=== PATIENT | female | born 1950 | race Hispanic/Latino ===

== ENCOUNTER 2018-05-22 15:52 | Outpatient (CLI) | payer MEDICARE, MEDICAID ==
[2018-05-22 16:56] LABS: #Eosinphils 0.2 thou/uL (0.0-0.7); #Lymphocytes 2.4 thou/uL (1.20-3.40); #Monocytes 0.6 thou/uL (0.11-0.59); #Neutrophils 6.2 thou/uL (1.40-6.50); %Basophils 0.5 % (0.0-1.0); %Eosinophils 2.4 % (0.0-10.0); %Lymphocytes 25.6 % (21.0-51.0); %Monocytes 6.2 % (0.0-10.0); %Neutrophils 65.4 % (42.0-75.0); Hemoglobin 13.4 g/dL (12.0-16.0); Mean Corpuscular HGB CONC 32.7 g/dL (32.0-36.0); Mean Corpuscular Hemoglobin 28.8 pg (27.0-31.0); Mean Corpuscular Volume 88.1 fL (78.0-98.0); Mean Platelet Volume 7.1 fL (7.4-10.4); Platelet Count 286 thou/uL (130-400); RBC Distribution Width 12.7 % (11.5-14.5); Red Blood Cell (RBC) Count 4.65 mill/uL (4.20-5.40); White Blood Cell (WBC) Count 9.5 thou/uL (4.8-10.8)
[2018-05-22 17:22] LABS: ALT (SGPT) 10 U/L (8-55); AST (SGOT) 14 U/L (5-34); Albumin 4.1 g/dL (3.4-4.8); Alkaline Phosphatase 81 U/L (40-150); Anion Gap 13 mmol/L (10-20); BUN (Urea Nitrogen) 16 mg/dL (9.8-20.1); Bilirubin, Total 1.2 mg/dL (0.2-1.2); Calc. Creatinine Clearance 0 mL/min (70-130); Calcium 9.9 mg/dL (7.8-10.44); Carbon Dioxide 26 mmol/L (23-31); Chloride 100 mmol/L (98-107); Estimated GFR-MDRD 85; Globulin 3.8 g/dL (2.4-3.5); Glucose 89 mg/dL (80-115); Potassium 3.3 mmol/L (3.5-5.1); Protein, Total 7.9 g/dL (6.0-8.3); Sodium 136 mmol/L (136-145)
--- NOTE | 2018-05-25 17:45 | EKG ---
Test Reason : Blood Pressure : / mmHG Vent. Rate : 072 BPM Atrial Rate : 072 BPM P-R Int : 152 ms QRS Dur : 088 ms QT Int : 428 ms P-R-T Axes : 039 040 -02 degrees QTc Int : 468 ms Normal sinus rhythm Normal ECG When compared with ECG of 22-FEB-2017 20:25, Sinus rhythm has replaced Atrial fibrillation Vent. rate has decreased BY 52 BPM Confirmed by LISA MAYS (2) on 05/25/2018 5:45:27 PM Referred By: SAUL Confirmed By:LISA MAYS
== END 2018-05-22 15:53 | disposition home or self-care (01) ==
LOC: LABBT 15:52
PROVIDERS: ATTEND Surgery
DX: Z01.818 Encounter for other preprocedural examination (principal); K43.2 Incisional hernia without obstruction or gangrene
CPT/HCPCS: 80053; 85025; 93005; 93010

== ENCOUNTER 2018-05-29 05:45 | Day surgery (SDC) | payer MEDICARE, MEDICAID ==
[2018-05-22 16:06] VITALS: BMI 44.9
[2018-05-29] MEDS ORDERED: CEFAZOLIN/Water 2 GM/20 ML SYRINGE ONE (06:51)
[2018-05-29] MEDS ORDERED: Heparin 5,000 UNITS/ML VIAL ONE (06:51)
[2018-05-29] MEDS ORDERED: Bupivacaine/Epinephrine 0.25% 30 ML VIAL ONE (07:06)
[2018-05-29] MEDS ORDERED: Fentanyl 100 MCG/2 ML VIAL ONE ×2 (07:17→08:40)
[2018-05-29] MEDS ORDERED: HYDROmorphone 2 MG/ML VIAL ONE (07:17)
[2018-05-29] MEDS ORDERED: Midazolam HCl 2 mg/2 ml Vial ONE (07:17)
[2018-05-29] MEDS ORDERED: diphenhydrAMINE 50 MG/ML VIAL IM PRN (07:23)
[2018-05-29] MEDS ORDERED: Ondansetron HCl/PF 4 MG/2 ML Vial IVP PRN ×2 (07:23)
[2018-05-29] MEDS ORDERED: diphenhydrAMINE 50 MG/ML VIAL IVP PRN (07:23)
[2018-05-29] MEDS ORDERED: Promethazine HCl 25 MG/ML VIAL IM PRN ×2 (07:23)
[2018-05-29] MEDS ORDERED: Zolpidem Tartrate 5 MG TAB PO PRN (07:23)
[2018-05-29] MEDS ORDERED: diphenhydrAMINE 25 MG CAP PO PRN (07:23)
[2018-05-29] MEDS ORDERED: Morphine Sulfate 2 MG/ML SYRINGE SLOW IVP PRN (07:23)
[2018-05-29] MEDS ORDERED: HYDROmorphone 10 mg/100 ml CADD IVPB PRN (07:23)
[2018-05-29] MEDS ORDERED: Promethazine HCl 25 MG/ML VIAL SLOW IVP PRN (07:23)
[2018-05-29] MEDS ORDERED: Naloxone HCl 0.4 mg/ml Vial IV PRN (07:23)
[2018-05-29] MEDS ORDERED: Meperidine HCl/PF 25 MG/ML VIAL SLOW IVP PRN (07:23)
[2018-05-29] MEDS ORDERED: Communication Order-Pharmacy FS SCH (07:30)
[2018-05-29] MEDS ORDERED: Morphine 4 MG/ML VIAL ONE ×2 (08:41→09:05)
--- NOTE | 2018-05-29 09:45 | OP ---
PREOPERATIVE DIAGNOSIS: Right axillary abscess. SURGEON: Jacob Malloy M.D. PROCEDURE PERFORMED: Excision and I&D of right axillary abscess. INDICATIONS: This is a 68-year-old female who is actually scheduled for a ventral hernia repair with mesh today. In the operating room before she was given any drugs, the nurse noticed an active infec tion in her right axilla that was draining purulent fluid, so the hernia portion was canceled and we performed the treatment of the axillary abscess. FINDINGS: A 6 x 4 x 2.5 cm ellipse of skin and subcutaneous tissue with about a 2 x 2 cm cavity of p urulent fluid that was sent for culture. PROCEDURE IN DETAIL: After informed consent was obtained, the patient was taken to the operating patrick m and given general endotracheal anesthesia. Her right axilla was prepped and draped in usual fashio n. Local anesthesia infiltrated subcutaneously and deep with 0.5% Marcaine. An elliptical incision was performed. The subcu divided sharply. There was inflammatory bowel that was about [address] that was excised on the back table. This was opened and cultures were obtained. The specimen wa s measured at 6 cm in length, 4 cm in width and 2.5 cm in depth. Hemostasis achieved with electrocau daren. The wound was packed open with Betadine gauze covered by sterile gauze.
[2018-05-29] MEDS ORDERED: Ketorolac Tromethamine 30 MG/ML VIAL IVP SCH (12:00)
[2018-05-29] MEDS ORDERED: Acetaminophen 1,000 MG in Premix Bag 1 BAG IVPB SCH (12:00)
[2018-05-29] MEDS ORDERED: Ondansetron HCl/PF 4 MG/2 ML Vial ONE (13:23)
[2018-05-29] MEDS ORDERED: Lidocaine 1% PF 5 ML VIAL ONE (13:23)
[2018-05-29] MEDS ORDERED: Glycopyrrolate 0.2 MG/ML 5 ML SYRINGE ONE (13:23)
[2018-05-29] MEDS ORDERED: PROPOFOL 200 MG/20 ML VIAL ONE (13:23)
== END 2018-05-29 10:30 | disposition home or self-care (01) ==
LOC: SDC 05:45
PROVIDERS: ATTEND Surgery
PROC: 0JB60ZZ Excision of Chest Subcutaneous Tissue and Fascia, Open Approach (ICD-10-PCS; principal; 2018-05-29)
DX: L02.411 Cutaneous abscess of right axilla (principal); K43.2 Incisional hernia without obstruction or gangrene; E11.9 Type 2 diabetes mellitus without complications; Z87.891 Personal history of nicotine dependence; Z79.82 Long term (current) use of aspirin; Z79.84 Long term (current) use of oral hypoglycemic drugs; Z79.899 Other long term (current) drug therapy; Z53.09 Procedure and treatment not carried out because of other contraindication
CPT/HCPCS: 36416; 87070; 87205; 88305; 96374; J0131; J1170; J1644; J2250; J2270; J3010

== ENCOUNTER 2018-07-21 16:25 | Outpatient (CLI) | payer MEDICARE, MEDICAID ==
[2018-07-21 17:12] LABS: #Eosinphils 0.2 thou/uL (0.0-0.7); #Lymphocytes 1.9 thou/uL (1.20-3.40); #Monocytes 0.6 thou/uL (0.11-0.59); #Neutrophils 4.6 thou/uL (1.40-6.50); %Basophils 0.6 % (0.0-1.0); %Lymphocytes 25.3 % (21.0-51.0); %Monocytes 8.2 % (0.0-10.0); %Neutrophils 62.9 % (42.0-75.0); Hemoglobin 13.9 g/dL (12.0-16.0); Mean Corpuscular HGB CONC 33.1 g/dL (32.0-36.0); Mean Corpuscular Hemoglobin 28.7 pg (27.0-31.0); Mean Corpuscular Volume 86.7 fL (78.0-98.0); Platelet Count 280 thou/uL (130-400); RBC Distribution Width 12.5 % (11.5-14.5); Red Blood Cell (RBC) Count 4.84 mill/uL (4.20-5.40); White Blood Cell (WBC) Count 7.4 thou/uL (4.8-10.8)
[2018-07-21 17:35] LABS: ALT (SGPT) 13 U/L (8-55); AST (SGOT) 15 U/L (5-34); Albumin 4.1 g/dL (3.4-4.8); Alkaline Phosphatase 87 U/L (40-150); Anion Gap 14 mmol/L (10-20); BUN (Urea Nitrogen) 14 mg/dL (9.8-20.1); Bilirubin, Total 0.9 mg/dL (0.2-1.2); Calc. Creatinine Clearance 0 mL/min (70-130); Calcium 9.8 mg/dL (7.8-10.44); Carbon Dioxide 24 mmol/L (23-31); Chloride 100 mmol/L (98-107); Estimated GFR-MDRD 88; Glucose 109 mg/dL (80-115); Potassium 3.1 mmol/L (3.5-5.1); Protein, Total 8.1 g/dL (6.0-8.3); Sodium 135 mmol/L (136-145)
== END 2018-07-21 16:26 | disposition home or self-care (01) ==
LOC: LABBT 16:25
PROVIDERS: ATTEND Surgery
DX: Z01.812 Encounter for preprocedural laboratory examination (principal); K43.2 Incisional hernia without obstruction or gangrene
CPT/HCPCS: 80053; 85025

== ENCOUNTER 2018-07-31 08:38 | Inpatient (IN) | payer MEDICARE, MEDICAID ==
[2018-07-31] MEDS ORDERED: Bupivacaine/Epinephrine 0.25% 30 ML VIAL ONE (09:56)
[2018-07-31] MEDS ORDERED: CEFAZOLIN 2 GM/50 ML BAG ONE (10:22)
[2018-07-31] MEDS ORDERED: Lidocaine 2% Jelly 5 ML TUBE ONE (10:32)
[2018-07-31] MEDS ORDERED: Fentanyl 100 MCG/2 ML VIAL ONE ×3 (10:32→16:18)
[2018-07-31] MEDS ORDERED: Midazolam HCl 2 mg/2 ml Vial ONE (10:32)
[2018-07-31] MEDS ORDERED: ePHEDrine/0.9% NaCl/PF SYRINGE 50 mg/10 ml ONE (11:53)
[2018-07-31] MEDS ORDERED: Ondansetron PF 4 MG/2 ML Vial ONE (11:53)
[2018-07-31] MEDS ORDERED: Glycopyrrolate 0.2 MG/ML 5 ML SYRINGE ONE (11:53)
[2018-07-31] MEDS ORDERED: PROPOFOL 200 MG/20 ML VIAL ONE (11:53)
[2018-07-31] MEDS ORDERED: Dexamethasone 20 MG/5 ML VIAL ONE (11:53)
[2018-07-31] MEDS ORDERED: Lidocaine 1% PF 5 ML VIAL ONE (11:53)
[2018-07-31] MEDS ORDERED: Dextrose 50% Abboject 50 ML SYRINGE SLOW IVP PRN (13:37)
[2018-07-31] MEDS ORDERED: Ondansetron PF 4 MG/2 ML Vial IVP PRN (13:37)
[2018-07-31] MEDS ORDERED: Calcium Carbonate 500 MG ChewTAB PO PRN (13:37)
[2018-07-31] MEDS ORDERED: Morphine 4 MG/ML Carpuject SLOW IVP PRN (13:37)
[2018-07-31] MEDS ORDERED: Dextrose 5% in Water 1,000 ML IV PRN (13:37)
[2018-07-31] MEDS ORDERED: HYDROcodone/Acetaminophen 10/325 mg Tablet PO PRN (13:37)
[2018-07-31] MEDS ORDERED: hydrALAZINE 20 MG/ML VIAL SLOW IVP PRN (13:37)
[2018-07-31] MEDS ORDERED: Promethazine HCl 25 MG/ML VIAL IM PRN ×2 (13:37→14:38)
[2018-07-31] MEDS ORDERED: Mag-Al 1200 mg/1200 mg/30 ML UDCUP PO PRN (13:37)
[2018-07-31] MEDS ORDERED: Insulin Regular 300 UNITS/3 ML VIAL SC PRN (13:37)
[2018-07-31] MEDS ORDERED: Ondansetron HCl/PF 4 MG/2 ML Vial IVP PRN (14:38)
[2018-07-31] MEDS ORDERED: Promethazine HCl 25 MG/ML VIAL SLOW IVP PRN (14:38)
[2018-07-31] MEDS: Ketorolac Tromethamine 30 MG/ML VIAL IVP SCH (17:42)
[2018-07-31] MEDS: Lactated Ringer's 1,000 ML IV SCH (17:44)
[2018-07-31 18:24] VITALS: BMI 41.5
[2018-07-31] MEDS: Famotidine/PF 20 mg/2ml Vial SLOW IVP SCH (20:56)
[2018-07-31] MEDS ORDERED: Enoxaparin Sodium 40 MG/0.4 ML SYRINGE SC SCH (21:00)
[2018-07-31] MEDS: HYDROcodone/Acetaminophen 10/325 mg Tablet PO PRN (21:10)
[2018-07-31] MEDS: Famotidine 20 MG TAB PO SCH (22:04)
--- NOTE | 2018-07-31 23:10 | OP ---
DATE OF PROCEDURE: 07/31/2018 PREOPERATIVE DIAGNOSIS: Recurrent ventral hernia. PROCEDURE PERFORMED: Laparoscopic repair of recurrent incarcerated ventral hernia with mesh. INDICATIONS FOR PROCEDURE: 68-year-old female, who had a previous umbilical hernia repair with mesh done many years ago, had a recurrence, has been having lot of pain with it. FINDINGS: There was incarcerated colon and small bowel and a 6 cm defect, 6 inch x 8 inch mesh was used to repair it. DESCRIPTION OF PROCEDURE: After informed consent was obtained, the patient was taken to the operating room and given general endotracheal anesthesia. She was placed in supine position with the right side slightly bumped. Her abdomen and flank were prepped and draped in usual fashion. Local anesthesia was infiltrated subcutaneously and deep. 12 mm incision was performed in right flank and a Veress needle inserted, drop test performed, pneumoperitoneum was created to a volume of 2 L of carbon dioxide. Utilizing a bladeless 12 mm trocar and zero-degree laparoscope, direct visual entry into the abdominal cavity was performed. Pneumoperitoneum was created to a pressure of 15 mmHg and two 5 mm ports were placed, right upper and right lower quadrant. The reduction was attempted, but it would stuck. You could see obvious colon, so it was a very tedious careful dissection circumferentially to slowly reduce this hernia and excise the hernia sac as well. Then, once the hernia sac was completely empty or the defect completely empty of bowel and fat, the fascia was closed transversely with a #1 PDS V-Loc suture from left to right. Once this was closed, a 6 x 8 inch oval Proceed mesh was fashioned. A total of eight 0 Ethibond sutures of alternating colors were placed in the mesh. The mesh was hydrated, rolled, and inserted intraabdominally. Then, individually, these sutures were grasped to position the mesh optimally. Then, they were tied down, and the mesh was further secured to the abdominal wall with a SecureStrap tacker. Then, the 12 mm fascia was closed with 0 Vicryl suture and the GraNee needle, and hemostasis assured. The bowel was again inspected. I did not see any injury. No enteric fluid. The abdomen was decompressed and scope removed. The skin was closed with interrupted 4-0 Rapide and Dermabond applied. The patient tolerated the procedure well and was transferred to Recovery in good condition. Sponge and needle count verified correct x2. Job ID: [id number]
[2018-08-01] MEDS: Lactated Ringer's 1,000 ML IV SCH ×2 (00:31→05:34)
[2018-08-01] MEDS: Ketorolac Tromethamine 30 MG/ML VIAL IVP SCH ×3 (00:35→12:36)
[2018-08-01] MEDS: HYDROcodone/Acetaminophen 10/325 mg Tablet PO PRN ×2 (03:34→09:27)
[2018-08-01 06:21] LABS: ALT (SGPT) 12 U/L (8-55); AST (SGOT) 25 U/L (5-34); Alkaline Phosphatase 69 U/L (40-150); Anion Gap 12 mmol/L (10-20); BUN (Urea Nitrogen) 17 mg/dL (9.8-20.1); Bilirubin, Total 0.9 mg/dL (0.2-1.2); Calc. Creatinine Clearance 155 mL/min (70-130); Calcium 8.6 mg/dL (7.8-10.44); Carbon Dioxide 24 mmol/L (23-31); Chloride 103 mmol/L (98-107); Estimated GFR-MDRD Greater than 90; Globulin 3.8 g/dL (2.4-3.5); Glucose 108 mg/dL (80-115); Potassium 3.8 mmol/L (3.5-5.1); Protein, Total 6.8 g/dL (6.0-8.3); Sodium 135 mmol/L (136-145)
[2018-08-01 08:41] LABS: #Lymphocytes 2.1 thou/uL (1.20-3.40); #Monocytes 0.8 thou/uL (0.11-0.59); #Neutrophils 7.8 thou/uL (1.40-6.50); %Basophils 0.2 % (0.0-1.0); %Eosinophils 0.4 % (0.0-10.0); %Lymphocytes 19.9 % (21.0-51.0); %Monocytes 7.3 % (0.0-10.0); %Neutrophils 72.2 % (42.0-75.0); Hemoglobin 12.2 g/dL (12.0-16.0); Mean Corpuscular HGB CONC 33.4 g/dL (32.0-36.0); Mean Corpuscular Hemoglobin 29.4 pg (27.0-31.0); Mean Corpuscular Volume 88.2 fL (78.0-98.0); Mean Platelet Volume 6.5 fL (7.4-10.4); Platelet Count 286 thou/uL (130-400); RBC Distribution Width 12.7 % (11.5-14.5); Red Blood Cell (RBC) Count 4.14 mill/uL (4.20-5.40); White Blood Cell (WBC) Count 10.7 thou/uL (4.8-10.8)
[2018-08-01] MEDS: Famotidine/PF 20 mg/2ml Vial SLOW IVP SCH (09:24)
[2018-08-01] MEDS: Famotidine 20 MG TAB PO SCH (09:25)
[2018-08-01 12:32] VITALS: BP 120/74; TEMP 98.2
[2018-08-01] MEDS ORDERED: metFORMIN 500 MG TAB PO SCH (17:00)
[2018-08-01] MEDS ORDERED: Carvedilol 3.125 MG TAB PO SCH (17:00)
[2018-08-01] MEDS ORDERED: Atorvastatin Calcium 10 MG TAB PO SCH (21:00)
[2018-08-02] MEDS ORDERED: Hydrochlorothiazide 25 MG TAB PO SCH (09:00)
--- NOTE | 2018-08-04 09:05 | DIS ---
DATE OF ADMISSION: 07/31/2018 DATE OF DISCHARGE: 08/01/2018 DISCHARGE DIAGNOSIS: Recurrent incisional ventral hernia. PROCEDURE: Procedure during admission, laparoscopic ventral hernia repair with mesh. HOSPITAL COURSE: The patient was admitted. Taken to the operating room where she underwent hernia repair, it was difficult, it was incarcerated and had bowel within it, stuck old mesh within the hernia sac. Postoperatively, she has done well. She is having moderate pain, but it was well controlled on Pimento. She is tolerating a regular diet. She is discharged to home in good condition on hydrocodone and Zofran. The hydrocodone has been prescribed by Dr. Richardson as she has a pain control contract with him. She will follow up with me in 2 weeks. Job ID: [id number]
== END 2018-08-01 13:03 | disposition home or self-care (01) | DRG 355 ==
LOC: SDC 08:38 → SJJU 13:37
PROVIDERS: ADMIT Surgery; ATTEND Surgery
PROC: 0WUF4JZ Supplement Abdominal Wall with Synthetic Substitute, Percutaneous Endoscopic Approach (ICD-10-PCS; principal; 2018-07-31)
DX: K43.0 Incisional hernia with obstruction, without gangrene (principal)
CPT/HCPCS: 36415; 36416; 80053; 85025; C1781; J1100; J1650; J1885; J2001; J2250; J2405; J2704; J3010; S0028

== ENCOUNTER 2019-01-27 04:25 | Emergency (ER) | payer MEDICARE, MEDICAID ==
[2019-01-27] MEDS ORDERED: Adacel (T-DAP) 0.5 ML SYRINGE ONE (06:07)
[2019-01-27] MEDS ORDERED: HYDROcodone/Acetaminophen 10/325 mg Tablet ONE (06:34)
--- NOTE | 2019-01-27 07:23 | CT ---
CT OF HEAD NONCONTRAST: INDICATION: Posttraumatic pain. FINDINGS: No acute intracranial hemorrhage, mass effect, midline shift, or ventriculomegaly. There is a calcif ic density overlying the high right frontal convexity which may relate to a dural-based calcification , or a heavily calcified meningioma. Scattered paranasal sinus opacification present. IMPRESSION: No acute intracranial hemorrhage or mass effect. POS: ELIAK
--- NOTE | 2019-01-27 07:31 | CT ---
CT OF FACE NONCONTRAST: INDICATION: Injury, pain. FINDINGS: There are bilateral nasal bone fractures with overlying soft tissue thickening. No displaced fractur e of the orbital vega or maxillary sinuses. There is irregularity of the osseous nasal septum with adjacent opacification of the nasal passageway. No retrobulbar hematoma. There is mild fluid of the right maxillary sinus. Pterygoid plates are intact. No posttraumatic dislocation of either temporo mandibular joint. IMPRESSION: Bilateral comminuted and displaced nasal bone fractures as well as fracture of the osseous nasal sept um with associated soft tissue injury and opacification of the nasal passageway. Mild fluid level is present within the adjacent right maxillary sinus. POS: NWK
--- NOTE | 2019-01-27 07:37 | RAD ---
Portable frontal chest radiograph: 01/27/2019 COMPARISON: 02/20/2017 HISTORY: Evaluate chest prior to surgery FINDINGS: Lungs are clear. Heart and mediastinal contours appear within normal limits. Supine imaging limits assessment for pneumothorax and pleural fluid. There is flattening of the humeral head on the right with a postoperative anchor overlying the right humeral head. There is atherosclerotic calc ification of the aortic arch. IMPRESSION: No acute findings.
--- NOTE | 2019-01-27 07:45 | RAD ---
XR Knee Rt 4 View STANDARD HISTORY: Fall, right knee pain FINDINGS: No fracture or dislocation is identified. Degenerative changes are present.
--- NOTE | 2019-01-27 07:46 | RAD ---
3 views left shoulder: 01/27/2019 COMPARISON: None HISTORY: Fall, trauma, pain FINDINGS: There is an impaction fracture of the left humeral head. On the scapular Y view there is cu rvilinear calcific density posterior to the humeral head, which could represent a displaced fracture fragment, prominent osteophyte, and or capsular calcification. No evidence for dislocation. Linear calcific density along the inferior aspect of the acromion noted, which may represent soft tissue calcification as well. IMPRESSION: Impacted fracture of the left humeral head.
== END 2019-01-27 06:39 | disposition home or self-care (01) ==
LOC: ERS 04:25
DX: S02.2XXA Fracture of nasal bones, initial encounter for closed fracture (principal); S42.202A Unspecified fracture of upper end of left humerus, initial encounter for closed fracture; S01.21XA Laceration without foreign body of nose, initial encounter; S80.211A Abrasion, right knee, initial encounter; E11.9 Type 2 diabetes mellitus without complications; E78.5 Hyperlipidemia, unspecified; Z79.899 Other long term (current) drug therapy; Z79.82 Long term (current) use of aspirin; W17.89XA Other fall from one level to another, initial encounter
CPT/HCPCS: 12011; 70450; 70486; 71045; 90471; 90715

== ENCOUNTER 2023-03-29 14:11 | Outpatient (CLI) | payer OTHER, MEDICAID | END 2023-03-29 14:12 | disposition home or self-care (01) | LOC: BICMAMMO 14:11 | PROVIDERS: ATTEND Internal Medicine | DX: N63.11 Unspecified lump in the right breast, upper outer quadrant (principal) | CPT/HCPCS: 76642; 77065; G0279 ==

== ENCOUNTER 2023-11-13 08:45 | Outpatient (CLI) | payer OTHER, MEDICAID | END 2023-11-13 08:46 | disposition home or self-care (01) | LOC: BICMAMMO 08:45 | PROVIDERS: ATTEND Family Medicine | DX: N63.11 Unspecified lump in the right breast, upper outer quadrant (principal) | CPT/HCPCS: 77065; G0279 ==

== ENCOUNTER 2024-03-02 07:43 | Outpatient (CLI) | payer OTHER, MEDICAID | END 2024-03-02 07:44 | disposition home or self-care (01) | LOC: BICRAD 07:43 | PROVIDERS: ATTEND Family Medicine | DX: M79.604 Pain in right leg (principal); M16.12 Unilateral primary osteoarthritis, left hip; M47.816 Spondylosis without myelopathy or radiculopathy, lumbar region; M51.36 Other intervertebral disc degeneration, lumbar region | CPT/HCPCS: 72100 ==